=== PATIENT | male | born 2000 | race Caucasian/White ===

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

== ENCOUNTER 2020-09-18 23:57 | Emergency (ER) | payer OTHER, SELFPAY ==
[2020-09-18 23:58] VITALS: BP 129/79; PULSE 57; RESP 18; TEMP 36.6; O2SAT 100; BMI 21.9
--- NOTE | 2020-09-19 | CT_ITS ---
We are attempting to reach an attending provider to discuss findings. An addendum with communication details will be sent when the communication is complete. STUDY: CT BRAIN WITHOUT CONTRAST REASON FOR EXAM: Male, 20 years old. RT SIDED FACIAL BRUISING AND SWELLING,UNABLE TO CLOSE MOUTH AFTER A HORSE KICKED NAIL CLIPPERS UP INTO HIS FACE,DENIES LOC RADIATION DOSAGE (If Supplied By Facility): CTDIvol = ( 44.99 ) mGy, DLP = ( 829.85 ) mGycm TECHNIQUE: Transaxial CT imaging of the brain was performed without administration of intravenous contrast material. Individualized dose optimization techniques were used for this CT. COMPARISON: No relevant priors. FINDINGS: There is scalp swelling overlying the right frontal sinus and the right supraorbital region. There is a fracture involving the superior wall of the right orbit extending to the right skull at the right frontal bone and lateral wall of the right orbit. There are multiple fractures involving the weller of the right maxillary sinus and to the right orbital floor. There is additional fracture involving the right zygomatic arch and through the right temporal bone. Normal size ventricles and extra-axial spaces for the patient''s age. Normal white matter tracts of the cerebral hemispheres. Normal basal ganglia and thalami. Normal brainstem. Normal cerebellum. There is a small focus of subarachnoid hemorrhage along the anterior aspect of the right temporal lobe, image 15, series 2 measuring approximately 5.2 mm in maximal thickness. There is trace amount of subdural hemorrhage along the right frontal bone at the level of the fracture site and just above the right orbit. There are no findings of an acute ischemic infarction. Normal visualized paranasal sinuses. CT/Brain/Head without Contrast IMPRESSION: Small extra-axial hematoma on the right at the level of the temporal lobe and right frontal lobe, likely subdural and in the region of the fracture sites described above. Please see accompanying report of the CT of the maxillofacial bones. Electronically Signed: Theresa Santiago MD at 0:51 EST , Service support ,
--- NOTE | 2020-09-19 00:01 | CT_ITS ---
STUDY: CT FACIAL BONES WITHOUT CONTRAST REASON FOR EXAM: Male, 20 years old. RT SIDED FACIAL BRUISING AND SWELLING,UNABLE TO CLOSE MOUTH AFTER A HORSE KICKED NAIL CLIPPERS UP INTO HIS FACE,DENIES LOC RADIATION DOSAGE (If Supplied By Facility): CTDIvol = ( 29.38 ) mGy, DLP = ( 591.53 ) mGycm TECHNIQUE: The patient was scanned in a multi detector CT scanner. Sagittal and coronal images were reconstructed. Individualized dose optimization techniques were used for this CT. COMPARISON: None. FINDINGS: There is right-sided periorbital, supraorbital and infraorbital soft tissue swelling. There is mild swelling overlying the right zygomatic arch and right temporal bone region. There is a comminuted fracture involving the anterior wall and posterior wall of the right maxillary sinus. There is a fracture through the lateral wall of the right orbit extending to the right temporal bone and tip of the right orbit. There is a fracture involving the right orbital floor. There is a fracture involving the right zygomatic arch with angulation at the fracture site. There is fracture involving the anterolateral aspect of the right sphenoid bone. Normal nasal bones and anterior nasal spine. There is air-fluid level within the right maxillary sinus with partial opacification of the right ethmoidal sinus. There is minimal retro-orbital anterior swelling near the superior wall orbital fracture. CT/Sinus/Facial Bone IMPRESSION: Right orbital floor fracture with additional fractures through the superior wall of the right orbit extending to the right lateral orbital wall, adjacent superolateral skull, superolateral right sphenoid and right temporal bone. Right zygomatic arch fracture and fractures of the anterior and lateral wall of the right maxillary sinus. Electronically Signed: Theresa Santiago MD at 1:12 EST , Service support ,
--- NOTE | 2020-09-19 00:01 | CT_ITS ---
Spine STUDY: CT CERVICAL SPINE WITHOUT CONTRAST REASON FOR EXAM: Male, 20 years old. RT SIDED FACIAL BRUISING AND SWELLING,UNABLE TO CLOSE MOUTH AFTER A HORSE KICKED NAIL CLIPPERS UP INTO HIS FACE,DENIES LOC RADIATION DOSAGE (If Supplied By Facility): CTDIvol = ( 18.18 ) mGy, DLP = ( 371.76 ) mGycm TECHNIQUE: High resolution transaxial imaging was performed without contrast material. Sagittal and coronal images were reconstructed. Individualized dose optimization techniques were used for this CT. COMPARISON: None FINDINGS: Normal craniovertebral junction. Normal anterior atlantoaxial articulation. Normal odontoid process. Normal cervical lordosis. Normal vertebral bodies and posterior osseous elements. C2-3: Normal endplates. Normal disc height and morphology. Normal central canal and intervertebral neuroforamina. C3-4: Normal endplates. Normal disc height and morphology. Normal central canal and intervertebral neuroforamina. C4-5: Normal endplates. Normal disc height and morphology. Normal central canal and intervertebral neuroforamina. C5-6: Normal endplates. Normal disc height and morphology. Normal central canal and intervertebral neuroforamina. C6-7: Normal endplates. Normal disc height and morphology. Normal central canal and intervertebral neuroforamina. C7-T1: Normal endplates. Normal disc height and morphology. Normal central canal and intervertebral neuroforamina. Normal visualized soft tissue structures. CT/Spine Cervical without Contras IMPRESSION: Normal unenhanced CT examination of the cervical spine. Electronically Signed: Theresa Santiago MD at 1:16 EST , Service support ,
[2020-09-19 00:02] VITALS: O2SAT 100
--- NOTE | 2020-09-19 00:02 | ED.VIS.GEN ---
History of Present Illness Chief Complaint: Head Injury Informant: Patient Onset: Today Context: Sudden Onset Timing: Continuous Current Severity: Moderate Maximum Severity: Moderate Narrative: Patient is a 20-year-old male who is otherwise healthy the presents to the emergency department with facial injury. Patient was trimming a horse. He had clippers in his hand. He states the horse kicked, and struck his arm and clipper struck him on the right side of the face. He states since that time, he has been unable to close his mouth. He has significant pain in the face. He denies any visual change. He denies any nausea or vomiting. He is not on any daily medications. He is otherwise been in his normal state of health. Prior similar symptoms: No Recent Illness/Hospitalization: No Past Medical History - Allergies and Home Meds Allergies/Adverse Reactions: Allergies No Known Allergies Allergy (Verified 09/19/20 00:41) Primary Care Physician: Robbi Thompson DO [Primary Care Provider] - Prior records reviewed: Yes Past Medical History: None Surgical History: no surgical history Smoking Status: Never smoker Review of Systems General: Denies: Chills, Fever, Sweats Eyes: Denies: Visual changes - bilaterally, Diplopia ENT: Denies: Rhinorrhea, Sore throat Cardiovascular: Denies: Chest pain, Palpitations Respiratory: Denies: Dyspnea, Cough, Dyspnea on exertion Gastrointestinal: Denies: Abdominal pain, Nausea, Vomiting, Diarrhea, Melena, Hematochezia Genitourinary: Denies: Dysuria, Hematuria, Frequency Musculoskeletal: Denies: Back pain, Extremity Pain Skin: Denies: Rash, Wounds Neurological: Denies: Headache, Weakness, Numbness Physical Exam Inital Vital Signs reviewed: Yes General: Well nourished, Well developed, No Acute Distress Head: Normocephalic, Trauma - Patient does have tenderness and deformity over the right zygomatic area. There is malocclusion. His oropharynx is patent. There does appear to be deformity of the nose. Eyes: Perrl, EOMI ENT: Moist mucous membranes, No rhinorrhea, Sinus tenderness Neck: Supple, Nontender, No lymphadenopathy Cardiovascular: Regular rate, Regular rhythm, No murmurs Respiratory: No distress, CTA bilaterally, Chest nontender Abdomen: Soft, Nontender, Nondistended, Normal bowel sounds Back: Nontender, Normal Inspection Extremities: Nontender, No edema Skin: Normal color, No rash Neurological: Alert, Oriented x3, Cranial nerves II-XII grossly intact, Normal Strength, Normal Sensation Psychological: Normal affect, Normal Mood Diagnostic/Tx/Re-eval Clinical Impression(s) from Imaging Studies Brain CT 09/19/20 00:00 IMPRESSION: Small extra-axial hematoma on the right at the level of the temporal lobe and right frontal lobe, likely subdural and in the region of the fracture sites described above. Please see accompanying report of the CT of the maxillofacial bones. Electronically Signed: Theresa Santiago MD at 0:51 EST , Service support , ADDENDUM: 09/19/20 0104 IMPRESSION: Small extra-axial hematoma on the right at the level of the temporal lobe and right frontal lobe, likely subdural and in the region of the fracture sites described above. Please see accompanying report of the CT of the maxillofacial bones. N.B. : Dr. Sha Pereira, AA, confirmed on 09/19/2020 00:57:21 (ET) that the referring physician received the results and does not require a verbal communication. Electronically Signed: Theresa Santiago MD at 0:51 EST , Service support , - Medical Decision Making The patient presents with facial trauma. He had no loss of consciousness. He has numbness on the right side of his nose into his upper lip. I am concerned for infraorbital nerve and entrapment. Patient was sent immediately for CT of the head, neck, and face. He does have multiple fractures of the right side of the face. This does include temporal bone, maxillary sinus, zygomatic arch, nasal fracture. There is a small area of pneumocephalus and small subdural. Prior to results, I have already made arrangements for the patient to be transferred to trauma center. He was covered with Rocephin. I discussed his case with Dr. Dimas, the trauma surgeon on-call at [facility]. He also requested Keppra given the small amount of bleeding. This is ordered. The patient has a GCS of 15. However, given significant injury he will be transferred to the critical care unit at [facility] for significant trauma and subdural hemorrhage. Impression 1. Multiple facial fractures 2. Subdural hemorrhage 3. Pneumocephalus 4. Infraorbital nerve entrapment - Critical Care Time Critical care time (excluding procedures): 30-74 minutes, Discussing w/Patient &/or Family/Purchasing Analyst, Discussing w/Consultants, Arranging Admission or Transfer, Performing Direct Patient Care at Bedside ED Disposition - Plan for ED Patient: Referrals: Robbi Thompson DO [Primary Care Provider] -
[2020-09-19 00:09] LABS: Absolute Lymphocyte Count 1.45 X10^3/uL (0.83-4.51); Absolute Neutrophil Count 5.9 X10^3/uL (2.0-7.7); Basophil# 0.05 X10^3/uL; Basophil% 0.6 % (0-1); Eosinophil# 0.05 X10^3/uL; Eosinophils% 0.6 % (0-5); Hematocrit 40.4 % (40-54); Hemoglobin 13.3 g/dL (13.0-16.5); Lymphocyte # 1.45 X10^3/ul (4.0); Lymphocyte % 17.9 % (19-41); Mean Corp Hgb Conc 32.9 g/dL (32-36); Mean Corpuscular Hgb 26.8 pg (27.0-32.0); Mean Corpuscular Volume 81.5 fL (80-94); Monocyte# 0.61 X10^3/uL; Monocyte% 7.5 % (0-10); NRBC Flagged by Analyzer 0 % (0-5); Neutrophil # 5.92 X10^3/uL (2.7-7.7); Neutrophil % 73.2 % (47-70); Platelet Count 220 K/mm3 (150-450); RBC Distribution Width CV 12.4 % (11.6-14.6); Red Blood Count 4.96 M/mm3 (4.6-6.2); White Blood Count 8.1 K/mm3 (4.4-11.0)
[2020-09-19] MEDS: Ondansetron 4 MG/2 ML Vial IV ×2 (00:09→01:50)
[2020-09-19] MEDS: Morphine 4 MG/ML Syringe IV ×2 (00:09→01:45)
[2020-09-19 00:25] LABS: Anion Gap 6 (5-15); BUN 13 mg/dL (7-18); BUN/Creat Ratio 14.6 RATIO (10-20); Chloride 104 mmol/L (98-107); Creatinine, Serum 0.89 mg/dL (0.70-1.30); EST Glomerular Filtration Rate 114 mL/min (>60); Est Glom Filt Rate - Afr Amer 138 mL/min (>60); Estimated Creatinine Clearance 136.49 ml/min; Glucose 131 mg/dL (74-106); Potassium 3.2 mmol/L (3.5-5.1); Sodium Level 138 mmol/L (136-145)
[2020-09-19 01:03] VITALS: BP 135/69; PULSE 55; RESP 16; O2SAT 100
[2020-09-19] MEDS: levETIRAcetam IV 1,000 MG/100 ML BAG 400 MG IV (01:51)
[2020-09-19 02:04] VITALS: BP 135/69; PULSE 65; RESP 18; TEMP 36.6; O2SAT 100
== END 2020-09-19 02:05 | disposition short-term general hospital (02) ==
PROVIDERS: Emergency Provider Emergency Medicine; PCP Family Medicine
DX: S06.5X0A Traumatic subdural hemorrhage without loss of consciousness, initial encounter (principal); G93.89 Other specified disorders of brain; G58.8 Other specified mononeuropathies; W55.12XA Struck by horse, initial encounter
CPT/HCPCS: 70450; 70486; 72125; 80048; 85025; 87426; 96361; 96365; 96375; 96376; 99285; J7030; J7050; A4216; J0696; J2405

== ENCOUNTER 2020-12-21 13:43 | Emergency (ER) | payer OTHER, SELFPAY ==
[2020-12-21 13:44] VITALS: BP 134/75; PULSE 79; RESP 18; TEMP 36.8; O2SAT 99; BMI 20.9
--- NOTE | 2020-12-21 13:54 | RAD_ITS ---
EXAM: XR LEFT HAND COMPLETE, 3 OR MORE VIEWS CLINICAL INDICATION: left hand injury, kicked by a horse today, lacerations 2nd digit TECHNIQUE: Frontal, lateral and oblique views of the left hand. This report was created using [employer] report generation technology. COMPARISON: None. FINDINGS: BONES/JOINTS: Comminuted , nondisplaced fracture of the proximal second phalanx with fracture extending to the articular surface. Preservation of the joint space. No sclerotic or destructive changes observed. SOFT TISSUES: There is soft tissue swelling predominantly of the second digit. No radiopaque foreign body. RAD/Hand Min 3 Views IMPRESSION: Comminuted , nondisplaced fracture of the proximal second phalanx with fracture extending to the articular surface. Electronically Signed: Ankit Atwood MD ([place]) at 14:29 EST , Service support ,
--- NOTE | 2020-12-21 13:55 | ED.DCSUM_ITS ---
History of Present Illness Chief Complaint: Laceration Informant: Patient Onset: Today Current Severity: Moderate Maximum Severity: Moderate Narrative: Patient presents with left index finger injury. Patient states her horse bucked up and caught up in the left hand with its half. He has pain and swelling to the left index finger with a laceration over the extensor surface. He states his third, fourth, and fifth fingers feel stiff. He has some mild tenderness along the base of his thumb as well. Past Medical History - Allergies and Home Meds Allergies/Adverse Reactions: Allergies No Known Allergies Allergy (Verified 12/21/20 13:44) Primary Care Physician: Robbi Thompson DO [Primary Care Provider] - Past Medical History: None Surgical History: no surgical history Lives: With Family Smoking Status: Never smoker Review of Systems General: Denies: Chills, Fever Eyes: Denies: Visual changes - bilaterally ENT: Denies: Bilateral ear pain Cardiovascular: Denies: Chest pain Respiratory: Denies: Dyspnea, Cough Gastrointestinal: Denies: Abdominal pain, Nausea, Vomiting Musculoskeletal: Reports: Extremity Pain Skin: Reports: Wounds Neurological: Denies: Parasthesia Psych: Denies: Depression Hematologic: Denies: Easy bruising, Easy bleeding Allergy: Denies: Uticaria Physical Exam Vital Signs/Narrative: Vital Signs Temp Pulse Resp BP Pulse Ox 12/21/20 13:44 98.2 F 79 18 134/75 H 99 Inital Vital Signs reviewed: Yes General: Well nourished, Well developed Head: Normocephalic Neck: Supple Cardiovascular: Regular rate, Regular rhythm Respiratory: No distress, CTA bilaterally Abdomen: Soft, Nontender Extremities: - - Laceration to the extensor surface of the left hand, proximal phalanx of the index finger. Decreased range of motion left index finger. Mild edema. Mild decreased range of motion fingers 3, 4, and 5 in the left hand. Mild tenderness at the base of the left thumb. Good cap refill distally. No t Neurological: Alert, Oriented x3 Psychological: Normal affect Diagnostic/Tx/Re-eval Impressions Hand X-Ray 12/21/20 13:54 IMPRESSION: Comminuted , nondisplaced fracture of the proximal second phalanx with fracture extending to the articular surface. Electronically Signed: Ankit Atwood MD ([place]) at 14:29 EST , Service support , 12/21/20 13:54 Hand Min 3 Views [RAD] Stat - Medical Decision Making Patient was given oxycodone for pain. Tetanus update is provided. X-ray my interpretation reveals comminuted fracture at the proximal first phalanx of the left index finger. Good alignment is noted. Radiologist interpretation is also reviewed. Hand is soaked. Following this wound is cleansed. There are 3 separate linear superficial lacerations over the extensor surface of the left index proximal phalanx. These are probed and do not probe deep to the wound. These are all very superficial. Local wound care is performed. I will place the patient in a splint with a single piece of Ortho-Glass. He is referred to hand surgery for follow-up. He will be given analgesics for home. He was given specific wound care instructions including hand elevation to help prevent swelling. ED Disposition - Plan for ED Patient: Disposition: Home or Assisted Living Diagnosis: Finger fracture Instructions: ED Fracture, Finger, Closed Prescriptions: Oxycodone HCl/Acetaminophen [Percocet 5/325] 1 tablet PO Q6H PRN PRN 3 Days #12 tablet PRN Reason: Pain Transmission Status: Received by [id number] Referrals: Mayra Leong MD [NON-STAFF] - As soon as possible
[2020-12-21] MEDS: oxyCODONE 5 MG Tablet PO (14:04)
[2020-12-21] MEDS: Diphth,Pertuss(Acell),Tet Vac 0.5 ML Vial IM (14:04)
[2020-12-21 15:30] VITALS: BP 116/56; PULSE 75; RESP 16; O2SAT 98
== END 2020-12-21 15:31 | disposition home or self-care (01) ==
PROVIDERS: Emergency Provider Emergency Medicine; PCP Family Medicine
DX: M79.645 Pain in left finger(s) (principal); S62.601A Fracture of unspecified phalanx of left index finger, initial encounter for closed fracture; W55.12XA Struck by horse, initial encounter
CPT/HCPCS: 73130; 90471; 90715; 99283